=== PATIENT | male | born 1960 ===

== ENCOUNTER 2017-07-30 14:41 | Emergency (ER) | payer SELFPAY ==
[2017-07-30 15:34] VITALS: TEMP 98.2
[2017-07-30] MEDS ORDERED: Lidocaine 5% Patch TD STA (16:50)
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
[2017-07-30] MEDS ORDERED: Lidocaine 5% Patch TD ONE ×2 (17:06→17:26)
[2017-07-30 17:29] VITALS: BP 132/78; PULSE 72; RESP 18
[2017-07-30 19:03] VITALS: O2SAT 99
--- NOTE | 2017-07-31 08:04 | RAD ---
PROCEDURE: Radiographs of the Lumbar Spine. HISTORY: trauma COMPARISON: No prior. FINDINGS: BONES: Normal alignment. No listhesis. No fracture. Mild spondylosis DISC SPACES: L2-3 L3-4 L4-5 and L5-S1 disc space narrowing with vacuum disc phenomena. OTHER FINDINGS: Stool retention IMPRESSION: No fracture or subluxation. Degenerative disc disease. Mild spondylosis
== END 2017-07-30 17:29 | disposition home or self-care (01) ==
LOC: C.ER 14:41
DX: S39.012A Strain of muscle, fascia and tendon of lower back, initial encounter (principal); V49.49XA Driver injured in collision with other motor vehicles in traffic accident, initial encounter; Y92.410 Unspecified street and highway as the place of occurrence of the external cause
CPT/HCPCS: 72100; 96372; 99283; J1885